=== PATIENT | female | born 2005 | race Asian ===

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

== ENCOUNTER 2023-04-26 01:21 | Emergency (ER) | payer MEDICAID ==
[~2023-04-26] VITALS: Ht 160 cm; Wt 63.5 kg
[2023-04-26 01:47] VITALS: BP_SYST 124; PULSE 76; RESP 18; TEMP 98.3; O2SAT 97
[2023-04-26] MEDS ORDERED: [UNRECOGNIZED DRUG - CODE] TP (02:20)
[2023-04-26] MEDS ORDERED: [UNRECOGNIZED DRUG - CODE] TP (02:21)
[2023-04-26 02:39] VITALS: BP_SYST 124; PULSE 76; RESP 18; TEMP 98.3; O2SAT 97
== END 2023-04-26 02:45 | disposition home or self-care (01) ==
LOC: SED 01:21
DX: T22.211A Burn of second degree of right forearm, initial encounter (principal); T22.212A Burn of second degree of left forearm, initial encounter; Z79.899 Other long term (current) drug therapy; X08.8XXA Exposure to other specified smoke, fire and flames, initial encounter; Y93.89 Activity, other specified; Y92.89 Other specified places as the place of occurrence of the external cause; Y99.8 Other external cause status
CPT/HCPCS: 99283